=== PATIENT | female | born 1980 | race American Indian/Alaskan Native ===

== ENCOUNTER 2017-02-10 17:14 | Emergency (ER) | payer BC ==
[2017-02-10 17:24] VITALS: BP 130/90
[2017-02-10] MEDS ORDERED: TORADOL IM ONE (19:56)
--- NOTE | 2017-02-10 21:15 | Emergency Department Report ---
ED Neck Pain/Injury HPI - General Chief Complaint: Neck Pain/Injury Stated Complaint: NECK PAIN Time Seen by Provider: 02/10/17 19:56 Mode of arrival: Ambulatory Limitations: No Limitations - History of Present Illness Initial Comments: This is a 36-year-old female nontoxic, well nourished in appearance, no acute signs of distress presents to the ED with c/o of intermittent chronic right neck pain radiates to her right upper extremity. Patient denies any trauma. Denies any nausea, vomiting, photophobia, stiff neck, chest pain, shortness of breath, headache blurry vision, numbness, tingling, abdominal pain. Patient stated symptoms are resolved with taking [id number] Motrin. Patient stated that symptoms have been resolving but she woke up this morning and developed right-sided neck pain. Patient states allergies to iodine but denies Past medical history. MD Complaint: neck pain -: month(s) (1) Place: home Radiation: right upper extremity Severity: mild Severity scale (0 -10): 8 Quality: aching Consistency: constant Improves With: none Worsens With: none Associated Symptoms: none. denies: headache, fever, numbness, tingling, weakness, vertigo, difficulty walking, swollen glands, difficulty swallowing, nausea, vomiting Treatments Prior to Arrival: none - Related Data Previous Rx's Medication Instructions Recorded Last Taken Type Cyclobenzaprine [Flexeril] 10 mg PO TID PRN #15 tablet 01/21/17 Unknown Rx Naproxen [Naprosyn] 500 mg PO BID PRN #20 tablet 01/21/17 Unknown Rx Ibuprofen [Motrin] 600 mg PO Q8H PRN #30 tablet 02/10/17 Unknown Rx methOCARBAMOL [Robaxin TAB] 500 mg PO BID #10 tab 02/10/17 Unknown Rx Allergies Allergy/AdvReac Type Severity Reaction Status Date / Time iodine AdvReac Swelling Verified 01/21/17 12:17 ED Review of Systems ROS: Stated complaint: NECK PAIN Other details as noted in HPI Constitutional: denies: chills, fever Eyes: denies: eye pain, eye discharge, vision change ENT: denies: ear pain, throat pain Respiratory: denies: cough, shortness of breath, wheezing Cardiovascular: denies: chest pain, palpitations Endocrine: no symptoms reported Gastrointestinal: denies: abdominal pain, nausea, diarrhea Genitourinary: denies: urgency, dysuria, discharge Musculoskeletal: denies: back pain, joint swelling, arthralgia Skin: denies: rash, lesions Neurological: denies: headache, weakness, paresthesias Psychiatric: denies: anxiety, depression Hematological/Lymphatic: denies: easy bleeding, easy bruising ED Past Medical Hx - Past Medical History Previous Medical History?: No - Surgical History Past Surgical History?: Yes Additional Surgical History: c section x 3 - Social History Smoking Status: Never Smoker Substance Use Type: None - Medications Home Medications: Home Medications Medication Instructions Recorded Confirmed Last Taken Type Cyclobenzaprine [Flexeril] 10 mg PO TID PRN #15 tablet 01/21/17 Unknown Rx Naproxen [Naprosyn] 500 mg PO BID PRN #20 tablet 01/21/17 Unknown Rx Ibuprofen [Motrin] 600 mg PO Q8H PRN #30 tablet 02/10/17 Unknown Rx methOCARBAMOL [Robaxin TAB] 500 mg PO BID #10 tab 02/10/17 Unknown Rx ED Physical Exam - General Limitations: No Limitations General appearance: alert, in no apparent distress - Head Head exam: Present: atraumatic, normocephalic, normal inspection - Eye Eye exam: Present: normal appearance, PERRL, EOMI. Absent: scleral icterus, conjunctival injection, nystagmus, periorbital swelling, periorbital tenderness Pupils: Present: normal accommodation - ENT ENT exam: Present: normal exam, normal orophraynx, mucous membranes moist, TM's normal bilaterally, normal external ear exam - Neck Neck exam: Present: normal inspection, tenderness, full ROM, other (Negative nuchal rigidity, carotid bruit.). Absent: meningismus, lymphadenopathy, thyromegaly - Respiratory Respiratory exam: Present: normal lung sounds bilaterally. Absent: respiratory distress, wheezes, rales, rhonchi, stridor, chest wall tenderness, accessory muscle use, decreased breath sounds, prolonged expiratory - Cardiovascular Cardiovascular Exam: Present: regular rate, normal rhythm, normal heart sounds. Absent: bradycardia, tachycardia, irregular rhythm, systolic murmur, diastolic murmur, rubs, gallop - GI/Abdominal GI/Abdominal exam: Present: soft, normal bowel sounds. Absent: distended, tenderness, guarding, rebound, rigid, diminished bowel sounds - Rectal Rectal exam: Present: deferred - Extremities Exam Extremities exam: Present: normal inspection, full ROM, normal capillary refill. Absent: tenderness, pedal edema, joint swelling, calf tenderness - Back Exam Back exam: Present: normal inspection, full ROM, paraspinal tenderness (right lateral cervical region). Absent: tenderness, CVA tenderness (R), CVA tenderness (L), muscle spasm, vertebral tenderness, rash noted - Expanded Back Exam Expanded Back exam: Present: normal rectal tone (as per patient). Absent: saddle anesthesia Back exam: Negative Straight Leg Raising: Left, Right - Neurological Exam Neurological exam: Present: alert, oriented X3, CN II-XII intact, normal gait, reflexes normal - Expanded Neurological Exam Expanded Patient oriented to: Present: person, place, time Cranial nerves: EOM's Intact: Normal, Gag Reflex: Normal, Tongue Deviation: Normal, Nystagmus: Normal, Facial Sensation: Normal, Facial Palsy with Forehead Movement: Normal, Facial Palsy without Forehead Movement: Normal Cerebellar function: Finger to Nose: Normal, Heel to Frank: Normal, Romberg: Normal Upper motor neuron: Carlos Eduardo Neglect: Normal, Pronator Drift: Normal, Babinski Sign : Normal, Sensory Extinction: Normal Sensory exam: Upper Extremity Light Touch: Normal, Upper Extremity Pin Prick: Normal, Upper Extremity Temperature: Normal, UE 2 Point Discrimination: Normal, Lower Extremity Light Touch: Normal, Lower Extremity Pin Prick: Normal, Lower Extremity Temperature: Normal, LE 2 Point Discrimination: Normal Motor strength exam: RUE: 5, LUE: 5, RLE: 5, LLE: 5 DTR: bicep (R): 2+, bicep (L): 2+, tricep (R): 2+, tricep (L): 2+, knee (R): 2+ , knee (L): 2+, ankle (R): 2+, ankle (L): 2+ Best Eye Response ([place]): (4) open spontaneously Best Motor Response ([place]): (6) obeys commands Best Verbal Response ([place]): (5) oriented [place] Total: 15 - Psychiatric Psychiatric exam: Present: normal affect, normal mood - Skin Skin exam: Present: warm, dry, intact, normal color. Absent: rash - Other Other exam information: Negative bladder or bowel stability as per patient. Negative kernig sign and brudzinski's sign ED Course Vital Signs 02/10/17 17:21 Temperature 98.9 F Pulse Rate 98 H Respiratory 16 Rate Blood Pressure 130/90 O2 Sat by Pulse 100 Oximetry - Reevaluation(s) Reevaluation #1: 02/10/17 21:18 Patient is speaking in full sentences with no signs of distress noted. ED Medical Decision Making - Medical Decision Making This is a 36-year-old female that presents with cervical radiculopathy. Patient is stable was examined by me. Patient received Toradol in the ED which patient stated symptoms are improving and subsiding. Patient was instructed to follow-up with her primary care doctor in 24 hours or symptoms such as nuchal rigidity, fever, chills, headache or any worsening return to the emergency room as soon as possible. At time time of discharge, the patient does not seem toxic or ill in appearance. No acute signs of distress noted. Patient agrees to discharge treatment plan of care. No further questions noted by the patient. Critical care attestation.: If time is entered above; I have spent that time in minutes in the direct care of this critically ill patient, excluding procedure time. ED Disposition Clinical Impression: Cervical radiculopathy Disposition: DC-01 TO HOME OR SELFCARE Is pt being admited?: No Does the pt Need Aspirin: No Condition: Stable Instructions: Cervical Radiculopathy (ED), Methocarbamol (By mouth), Ibuprofen (By mouth) Additional Instructions: Follow-up with her primary care doctor in 24 hours or symptoms such as nuchal rigidity, fever, chills, headache or any worsening return to the emergency room as soon as possible. Prescriptions: Ibuprofen [Motrin] 600 mg PO Q8H PRN #30 tablet PRN Reason: Pain methOCARBAMOL [Robaxin TAB] 500 mg PO BID #10 tab Referrals: [facility] [Outside] - 3-5 Days [facility] [Outside] - 3-5 Days PRIMARY CAREMD [Primary Care Provider] - 24 Hours ADOLFO SANTIAGO MD [Staff Physician] - 24 Hours Forms: Work/School Release Form(ED)
== END 2017-02-10 21:35 | disposition home or self-care (01) ==
LOC: ED 17:14
DX: M54.12 Radiculopathy, cervical region (principal); Z88.8 Allergy status to other drugs, medicaments and biological substances
CPT/HCPCS: 96372; 99282; J1885

== ENCOUNTER 2018-04-28 07:14 | Emergency (ER) | payer BC ==
[2018-04-28 07:38] VITALS: BP 135/89
[2018-04-28] MEDS ORDERED: DELTASONE PO ONE (08:22)
[2018-04-28] MEDS ORDERED: PROVENTIL IH ONE (08:22)
--- NOTE | 2018-04-28 08:28 | Emergency Department Report ---
Minor Respiratory - HPI Chief Complaint: Upper Respiratory Infection Stated Complaint: FLU SYMPTOMS Time Seen by Provider: 04/28/18 08:15 Duration: 3 Days Pain Location: Facial, Throat, Nose, Ear, Chest Severity: mild Minor Respiratory: Yes Sore Throat, Yes Able to Tolerate Fluids, Yes Cough, No Rhinorrhea, No Ear Pain, No Sick Contacts, No Hemoptysis, No Chest Pain, No Shortness of Breath, No Fever Other History: Responses and 37-year-old patient who comes to the ER today complaining of body aches congestion and chills. Patient has no fever on admission to the ER. She denies any daily home medications. She reports the symptoms have been for 3 days. She has taken no meds at home to feel better. ED Review of Systems ROS: Stated complaint: FLU SYMPTOMS Other details as noted in HPI Comment: All other systems reviewed and negative Constitutional: see HPI Eyes: denies: eye pain ENT: as per HPI, throat pain Respiratory: see HPI, cough Cardiovascular: denies: palpitations Endocrine: denies: excessive sweating Gastrointestinal: denies: nausea Genitourinary: denies: urgency Musculoskeletal: denies: back pain Skin: denies: rash Neurological: denies: headache Psychiatric: denies: anxiety ED Past Medical Hx - Past Medical History Previous Medical History?: No - Surgical History Past Surgical History?: Yes Additional Surgical History: c section x 3 - Family History Family history: no significant - Social History Smoking Status: Never Smoker Substance Use Type: None - Medications Home Medications: Home Medications Medication Instructions Recorded Confirmed Last Taken Type Fluticasone [Flonase] 1 spray NS QDAY #1 bottle 04/28/18 Unknown Rx RX: Azithromycin [Zithromax Z-ALLIE] 250 mg PO DAILY #6 tablet 04/28/18 Unknown Rx RX: predniSONE [Deltasone] 20 mg PO DAILY #5 tablet 04/28/18 Unknown Rx methylPREDNISolone [Medrol] 4 mg PO DAILY #1 tab.ds.pk 04/28/18 Unknown Rx Minor Respiratory Exam - Exam General: Vital signs noted. No distress. Alert and acting appropriately. HEENT: Yes Moist Mucous Membranes, No Pharyngeal Erythema, No Pharyngeal Exudates, No Rhinorrhea, No Conjuctival Injection, No Frontal Tenderness, No Maxillary Tenderness Ear: Neither TM Bulge, Neither TM Erythema, Neither EAC Pain, Neither EAC Discharge Neck: No Adenopathy, No Supple Lungs: Yes Good Air Exchange, No Wheezes, No Ronchi, No Stridor, No Cough, No Labored Respirations, No Retractions, No Use of Accessory Muscles, No Other Abnormal Lung Sounds Heart: Yes Regular, No Murmur Abdomen: Yes Normal Bowel Sounds, No Tenderness, No Peritoneal Signs Skin: No Rash, No Edema Neurologic: Alert and oriented, no deficits. Musculoskeletal: Unremarkable. ED Course Vital Signs 04/28/18 07:36 Temperature 98.7 F Pulse Rate 94 H Respiratory 18 Rate Blood Pressure 135/89 O2 Sat by Pulse 99 Oximetry ED Medical Decision Making - Lab Data Result diagrams: 04/28/18 08:50 04/28/18 08:50 - Medical Decision Making Lab Results 04/28/18 04/28/18 04/28/18 Range/Units 08:49 08:50 08:50 WBC 5.2 (4.5-11.0) K/mm3 RBC 4.04 (3.65-5.03) M/mm3 Hgb 12.7 (10.1-14.3) gm/dl Hct 37.9 (30.3-42.9) % MCV 94 (79-97) fl MCH 31 (28-32) pg MCHC 33 (30-34) % RDW 13.5 (13.2-15.2) % Plt Count 225 (140-440) K/mm3 Sodium 138 (137-145) mmol/L Potassium 3.8 (3.6-5.0) mmol/L Chloride 104.0 (98-107) mmol/L Carbon Dioxide 24 (22-30) mmol/L Anion Gap 14 mmol/L BUN 10 (7-17) mg/dL Creatinine 0.7 (0.7-1.2) mg/dL Estimated GFR > 60 ml/min BUN/Creatinine Ratio 14 % Glucose 93 (65-100) mg/dL Calcium 8.9 (8.4-10.2) mg/dL Urine Color Yellow (Yellow) Urine Turbidity Clear (Clear) Urine pH 5.0 (5.0-7.0) Ur Specific [place] 1.019 (1.003-1.030) Urine Protein <15 mg/dl (Negative) mg/dL Urine Glucose (UA) Neg (Negative) mg/dL Urine Ketones Neg (Negative) mg/dL Urine Blood Neg (Negative) Urine Nitrite Neg (Negative) Ur Reducing Substances Not Reportable Urine Bilirubin Neg (Negative) Urine Ictotest Not Reportable Urine Urobilinogen < 2.0 (<2.0) mg/dL Ur Leukocyte Esterase Tr (Negative) Urine WBC (Auto) 2.0 (0.0-6.0) /HPF Urine RBC (Auto) 1.0 (0.0-6.0) /HPF U Epithel Cells (Auto) 2.0 (0-13.0) /HPF Urine Bacteria (Auto) 1+ (Negative) /HPF Urine Mucus Few /HPF Urine HCG, Qual Negative (Negative) Vital Signs 04/28/18 04/28/18 04/28/18 07:36 09:09 09:24 Temperature 98.7 F Pulse Rate 94 H Pulse Rate [ 79 82 Anterior Bilateral Throughout] Respiratory 18 Rate Respiratory 18 18 Rate [Anterior Bilateral Throughout] Blood Pressure 135/89 O2 Sat by Pulse 99 Oximetry Vital signs are stable. Patient has no fever. Oxygen saturations are 99%. She is nontoxic, taking by mouth and ambulatory. pt will be dc home with dc plan of care and follow up Critical care attestation.: If time is entered above; I have spent that time in minutes in the direct care of this critically ill patient, excluding procedure time. ED Disposition Clinical Impression: Upper respiratory infection Disposition: DC-01 TO HOME OR SELFCARE Is pt being admited?: No Does the pt Need Aspirin: No Condition: Stable Instructions: Upper Respiratory Infection (ED) Additional Instructions: hydrate well with water meds as ordered follow up with pcp in 24 h if not better all studies normal today diet and activity as tolerated Prescriptions: RX: Azithromycin [Zithromax Z-ALLIE] 250 mg PO DAILY #6 tablet Fluticasone [Flonase] 1 spray NS QDAY #1 bottle methylPREDNISolone [Medrol] 4 mg PO DAILY #1 tab.ds.pk RX: predniSONE [Deltasone] 20 mg PO DAILY #5 tablet Referrals: SISSY BEACH MD [Primary Care Provider] - 3-5 Days Forms: Work/School Release Form(ED) Time of Disposition: 10:25
[2018-04-28 09:09] LABS: Hematocrit 37.9 % (30.3-42.9); Hemoglobin 12.7 gm/dl (10.1-14.3); Mean Corpuscular HGB Conc 33 % (30-34); Mean Corpuscular Volume 94 fl (79-97); Platelet Count 225 K/mm3 (140-440); Red Blood Count 4.04 M/mm3 (3.65-5.03); Red Cell Distribution Width 13.5 % (13.2-15.2)
[2018-04-28 09:21] LABS: BUN/Creatinine Ratio 14; Blood Urea Nitrogen 10 mg/dL (7-17); Calcium 8.9 mg/dL (8.4-10.2); Hemolysis Index 9
[2018-04-28 09:23] LABS: HCG Qualitative,Urine Negative (Negative)
[2018-04-28 09:27] LABS: Bacteria,Urine 1+ /HPF (Negative); Bilirubin,Urine NEG (Negative); Blood,Urine NEG (Negative); Color,Urine Yellow (Yellow); Mucus,Urine FEW /HPF; Protein,Urine <15 mg/dL mg/dL (Negative); Urobilinogen,Urine < 2.0 mg/dL (<2.0)
--- NOTE | 2018-04-28 10:53 | XRay Report ---
ROUTINE CHEST, TWO VIEWS: Cough. PA and lateral views demonstrate the heart and mediastinal contour to be of normal size and shape. The lungs are clear and fully expanded and the soft tissues and bony structures are normal. IMPRESSION: Normal study.
== END 2018-04-28 10:31 | disposition home or self-care (01) ==
LOC: ED 07:14
DX: J06.9 Acute upper respiratory infection, unspecified (principal); Z88.8 Allergy status to other drugs, medicaments and biological substances; Z91.040 Latex allergy status
CPT/HCPCS: 36415; 71046; 80048; 81001; 81025; 85027; 94640; 99284; J7512

== ENCOUNTER 2018-12-02 11:29 | Outpatient (CLI) | payer BC ==
[2018-12-02 12:28] LABS: Hematocrit 40.4 % (30.3-42.9); Hemoglobin 13.3 gm/dl (10.1-14.3); Mean Corpuscular HGB Conc 33 % (30-34); Mean Corpuscular Volume 94 fl (79-97); Platelet Count 265 K/mm3 (140-440); Red Cell Distribution Width 13.9 % (13.2-15.2)
[2018-12-02 13:02] LABS: Alanine Aminotransferase 16 units/L (7-56); Albumin 4.5 g/dL (3.9-5); BUN/Creatinine Ratio 12; Blood Urea Nitrogen 6 mg/dL (7-17); Calcium 9.3 mg/dL (8.4-10.2); Chol/HDL Ratio 2.37 %; HDL Cholesterol 77 mg/dL (40-59); Hemolysis Index 1; LDL Cholesterol,Direct 118 mg/dL (50-130)
== END 2018-12-02 11:30 | disposition home or self-care (01) ==
LOC: LAB 11:29
PROVIDERS: ATTEND Internal Medicine
DX: Z13.220 Encounter for screening for lipoid disorders (principal); Z13.1 Encounter for screening for diabetes mellitus; Z13.21 Encounter for screening for nutritional disorder
CPT/HCPCS: 36415; 80053; 80061; 82306; 82607; 83036; 84443; 85027

== ENCOUNTER 2019-01-30 07:10 | Emergency (ER) | payer BC ==
[2019-01-30 07:42] VITALS: BP 140/86
--- NOTE | 2019-01-30 08:48 | Emergency Department Report ---
ED General Adult HPI - General Chief complaint: Upper Respiratory Infection Stated complaint: FLU SYMPTOMS Time Seen by Provider: 01/30/19 07:46 Source: patient Mode of arrival: Ambulatory Limitations: No Limitations - History of Present Illness Initial comments: 38-year-old -[place] female patient complains of sore throat 2 days. She denies any fever/chills, cough, rash, sick contacts, or trouble swallowing. She rates the pain at a 7 out of 10 in severity. She denies history of recurrent strep. -: Sudden Radiation: non-radiation Associated Symptoms: headaches. denies: confusion, cough, loss of appetite, malaise, rash, weakness - Related Data Previous Rx's Medication Instructions Recorded Last Taken Type Azithromycin [Zithromax Z-ALLIE] 250 mg PO DAILY #6 tablet 04/28/18 Unknown Rx Fluticasone [Flonase] 1 spray NS QDAY #1 bottle 04/28/18 Unknown Rx methylPREDNISolone [Medrol] 4 mg PO DAILY #1 tab.ds.pk 04/28/18 Unknown Rx predniSONE [Deltasone] 20 mg PO DAILY #5 tablet 04/28/18 Unknown Rx Ibuprofen [Motrin 800 MG tab] 800 mg PO Q8HR PRN #21 tablet 01/30/19 Unknown Rx predniSONE [Deltasone] 20 mg PO QDAY 3 Days #3 tab 01/30/19 Unknown Rx Allergies Allergy/AdvReac Type Severity Reaction Status Date / Time Latex, Natural Rubber Allergy Rash Verified 04/28/18 07:38 iodine AdvReac Swelling Verified 01/21/17 12:17 ED Review of Systems ROS: Stated complaint: FLU SYMPTOMS Other details as noted in HPI Comment: All other systems reviewed and negative ENT: as per HPI Respiratory: see HPI ED Past Medical Hx - Past Medical History Previous Medical History?: No - Surgical History Past Surgical History?: Yes Additional Surgical History: c section x 3 - Social History Smoking Status: Never Smoker Substance Use Type: None - Medications Home Medications: Home Medications Medication Instructions Recorded Confirmed Last Taken Type Azithromycin [Zithromax Z-ALLIE] 250 mg PO DAILY #6 tablet 04/28/18 Unknown Rx Fluticasone [Flonase] 1 spray NS QDAY #1 bottle 04/28/18 Unknown Rx methylPREDNISolone [Medrol] 4 mg PO DAILY #1 tab.ds.pk 04/28/18 Unknown Rx predniSONE [Deltasone] 20 mg PO DAILY #5 tablet 04/28/18 Unknown Rx Ibuprofen [Motrin 800 MG tab] 800 mg PO Q8HR PRN #21 tablet 01/30/19 Unknown Rx predniSONE [Deltasone] 20 mg PO QDAY 3 Days #3 tab 01/30/19 Unknown Rx ED Physical Exam - General Limitations: No Limitations General appearance: alert, in no apparent distress - Head Head exam: Present: atraumatic, normocephalic - Eye Eye exam: Present: normal appearance. Absent: scleral icterus - ENT ENT exam: Present: mucous membranes moist - Neck Neck exam: Present: full ROM, lymphadenopathy. Absent: meningismus - Respiratory Respiratory exam: Present: normal lung sounds bilaterally. Absent: respiratory distress - Cardiovascular Cardiovascular Exam: Present: regular rate, normal rhythm - Neurological Exam Neurological exam: Present: alert, oriented X3 - Psychiatric Psychiatric exam: Present: normal affect, normal mood - Skin Skin exam: Present: warm, dry, intact, normal color. Absent: rash ED Course Vital Signs 01/30/19 01/30/19 07:39 09:05 Temperature 98.4 F Pulse Rate 90 Respiratory 18 16 Rate Blood Pressure 140/86 O2 Sat by Pulse 98 Oximetry ED Medical Decision Making - Lab Data Lab Results 01/30/19 Range/Units Unknown Group A Strep Rapid Negative (Negative) - Medical Decision Making Patient here for sore throat for the past 2 days. Patient is afebrile. Throat exam is negative for acute findings. Strep is negative. Centor's criteria score= 2. Symptoms are likely due to viral pharyngitis. Recommend follow-up with primary care. We'll treat symptomatically for now. Strict return precautions were discussed in detail with patient who states understanding. Critical care attestation.: If time is entered above; I have spent that time in minutes in the direct care of this critically ill patient, excluding procedure time. ED Disposition Clinical Impression: Viral pharyngitis Disposition: DC- TO HOME OR SELFCARE Is pt being admited?: No Condition: Stable Instructions: Pharyngitis (ED) Prescriptions: predniSONE [Deltasone] 20 mg PO QDAY 3 Days #3 tab Ibuprofen [Motrin 800 MG tab] 800 mg PO Q8HR PRN #21 tablet PRN Reason: Pain , Severe (7-10) Referrals: PRIMARY CARE, [Primary Care Provider] - 3-5 Days Forms: Work/School Release Form(ED)
[2019-01-30] MEDS ORDERED: IBUPROFEN 800 MG TAB PO ONE (08:52)
== END 2019-01-30 09:33 | disposition home or self-care (01) ==
LOC: ED 07:10
DX: J02.9 Acute pharyngitis, unspecified (principal); Z91.040 Latex allergy status; Z91.041 Radiographic dye allergy status
CPT/HCPCS: 87116; 87430

== ENCOUNTER 2019-02-03 07:05 | Emergency (ER) | payer SELFPAY ==
[2019-02-03] MEDS ORDERED: methylPREDNISolone Sod Succinate 125 MG/2 ML INJ IV ONE (07:55)
[2019-02-03] MEDS ORDERED: IPRATROPIUM/ALBUTEROL SULFATE 3 ML AMPUL.NEB IH ONE (07:55)
[2019-02-03] MEDS ORDERED: SODIUM CHLORIDE 0.9% 1000 ML 1,000 ML IV ONE (07:56)
--- NOTE | 2019-02-03 08:44 | XRay Report ---
CHEST 1 VIEW INDICATION: cough/sob. COMPARISON: 04/28/2018 FINDINGS: Support devices: None. Heart: Within normal limits. Pulmonary vasculature: Normal. Lungs/Pleura: No acute air space or interstitial disease. Additional findings: None. IMPRESSION: Normal chest. Signer Name: Joon Corrigan MD Signed: 02/03/2019 8:40 AM Workstation Name: [id number]
--- NOTE | 2019-02-03 08:56 | Emergency Department Report ---
ED General Adult HPI - General Chief complaint: Upper Respiratory Infection Stated complaint: CHEST PAIN BACK PAIN WEAKNESS COUGH Time Seen by Provider: 02/03/19 07:33 Source: patient Mode of arrival: Ambulatory Limitations: No Limitations - History of Present Illness Initial comments: Patient presents to the emergency department with a chief complaint of severe cough with congestion for the last week. Patient's sensation was seen in the emergency department previously for the symptoms and does not feel better. -: Gradual Severity scale (0 -10): 0 Consistency: constant Improves with: none Worsens with: none Associated Symptoms: denies other symptoms Treatments Prior to Arrival: none - Related Data Previous Rx's Medication Instructions Recorded Last Taken Type Azithromycin [Zithromax Z-ALLIE] 250 mg PO DAILY #6 tablet 04/28/18 Unknown Rx Fluticasone [Flonase] 1 spray NS QDAY #1 bottle 04/28/18 Unknown Rx methylPREDNISolone [Medrol] 4 mg PO DAILY #1 tab.ds.pk 04/28/18 Unknown Rx predniSONE [Deltasone] 20 mg PO DAILY #5 tablet 04/28/18 Unknown Rx Ibuprofen [Motrin 800 MG tab] 800 mg PO Q8HR PRN #21 tablet 01/30/19 Unknown Rx predniSONE [Deltasone] 20 mg PO QDAY 3 Days #3 tab 01/30/19 Unknown Rx ALBUTEROL Inhaler (OR & NICU) 2 puff IH Q4HR PRN #1 inhalation 02/03/19 Unknown Rx [ProAir HFA Inhaler] Azithromycin [Zithromax Z-ALLIE] 250 mg PO DAILY #6 tablet 02/03/19 Unknown Rx Ketorolac [Toradol] 10 mg PO Q6H PRN #12 tablet 02/03/19 Unknown Rx Ondansetron [Zofran Odt] 4 mg PO Q4HR PRN #20 tab.rapdis 02/03/19 Unknown Rx guaiFENesin/CODEINE [Robitussin AC] 5 ml PO Q12HR PRN #180 oral.liqd 02/03/19 Unknown Rx predniSONE [Deltasone] 20 mg PO DAILY #15 tablet 02/03/19 Unknown Rx Allergies Allergy/AdvReac Type Severity Reaction Status Date / Time Latex, Natural Rubber Allergy Rash Verified 04/28/18 07:38 iodine AdvReac Swelling Verified 01/21/17 12:17 ED Review of Systems ROS: Stated complaint: CHEST PAIN BACK PAIN WEAKNESS COUGH Other details as noted in HPI Constitutional: denies: chills, fever Eyes: denies: eye pain, eye discharge, vision change ENT: denies: ear pain, throat pain Respiratory: cough, shortness of breath. denies: wheezing Cardiovascular: denies: chest pain, palpitations Endocrine: no symptoms reported Gastrointestinal: denies: abdominal pain, nausea, diarrhea Genitourinary: denies: urgency, dysuria, discharge Musculoskeletal: denies: back pain, joint swelling, arthralgia Skin: denies: rash, lesions Neurological: denies: headache, weakness, paresthesias Psychiatric: denies: anxiety, depression Hematological/Lymphatic: denies: easy bleeding, easy bruising ED Past Medical Hx - Past Medical History Previous Medical History?: Yes Hx Asthma: Yes - Surgical History Past Surgical History?: Yes Additional Surgical History: c section x 3. tubal ligation - Social History Smoking Status: Never Smoker Substance Use Type: None - Medications Home Medications: Home Medications Medication Instructions Recorded Confirmed Last Taken Type Azithromycin [Zithromax Z-ALLIE] 250 mg PO DAILY #6 tablet 04/28/18 Unknown Rx Fluticasone [Flonase] 1 spray NS QDAY #1 bottle 04/28/18 Unknown Rx methylPREDNISolone [Medrol] 4 mg PO DAILY #1 tab.ds.pk 04/28/18 Unknown Rx predniSONE [Deltasone] 20 mg PO DAILY #5 tablet 04/28/18 Unknown Rx Ibuprofen [Motrin 800 MG tab] 800 mg PO Q8HR PRN #21 tablet 01/30/19 Unknown Rx predniSONE [Deltasone] 20 mg PO QDAY 3 Days #3 tab 01/30/19 Unknown Rx ALBUTEROL Inhaler (OR & NICU) 2 puff IH Q4HR PRN #1 inhalation 02/03/19 Unknown Rx [ProAir HFA Inhaler] Azithromycin [Zithromax Z-ALLIE] 250 mg PO DAILY #6 tablet 02/03/19 Unknown Rx Ketorolac [Toradol] 10 mg PO Q6H PRN #12 tablet 02/03/19 Unknown Rx Ondansetron [Zofran Odt] 4 mg PO Q4HR PRN #20 tab.rapdis 02/03/19 Unknown Rx guaiFENesin/CODEINE [Robitussin AC] 5 ml PO Q12HR PRN #180 oral.liqd 02/03/19 Unknown Rx predniSONE [Deltasone] 20 mg PO DAILY #15 tablet 02/03/19 Unknown Rx ED Physical Exam - General Limitations: No Limitations General appearance: alert, in no apparent distress - Head Head exam: Present: atraumatic, normocephalic - Eye Eye exam: Present: normal appearance, PERRL - ENT ENT exam: Present: mucous membranes moist - Neck Neck exam: Present: normal inspection - Respiratory Respiratory exam: Present: normal lung sounds bilaterally, wheezes (mild whe ezing on exam). Absent: respiratory distress - Cardiovascular Cardiovascular Exam: Present: regular rate, normal rhythm. Absent: systolic murmur, diastolic murmur, rubs, gallop - GI/Abdominal GI/Abdominal exam: Present: soft, normal bowel sounds. Absent: distended, tenderness - Extremities Exam Extremities exam: Present: normal inspection - Back Exam Back exam: Present: normal inspection - Neurological Exam Neurological exam: Present: alert, oriented X3, CN II-XII intact. Absent: motor sensory deficit - Psychiatric Psychiatric exam: Present: normal affect, normal mood - Skin Skin exam: Present: warm, dry, intact, normal color. Absent: rash ED Course Vital Signs 02/03/19 07:12 Temperature 98.6 F Pulse Rate 92 H Respiratory 16 Rate Blood Pressure 142/88 O2 Sat by Pulse 99 Oximetry ED Medical Decision Making - Radiology Data Radiology results: report reviewed - Medical Decision Making The length disposition was secondary to the patient not receiving IV medications and fluids as ordered. Upon reexamination of the patient at 8:30 AM patient has not had IV started or medications given. Diagnostic results discussed with patient and plan of care Critical care attestation.: If time is entered above; I have spent that time in minutes in the direct care of this critically ill patient, excluding procedure time. ED Disposition Clinical Impression: Bronchitis Disposition: DC-01 TO HOME OR SELFCARE Is pt being admited?: No Does the pt Need Aspirin: No Condition: Stable Instructions: Acute Bronchitis (ED) Additional Instructions: return if worse Referrals: NAVJOT SANABRIA MD [Primary Care Provider] - 3-5 Days [facility], [Provider Group] - 3-5 Days [facility] [Provider Group] - 3-5 Days Time of Disposition: 10:17
[2019-02-03] MEDS ORDERED: ONDANSETRON 4 MG/2 ML INJ ONE (09:26)
[2019-02-03] MEDS ORDERED: ONDANSETRON 4 MG/2 ML INJ IV ONE (09:28)
[2019-02-03 10:59] VITALS: BP 124/76
== END 2019-02-03 10:58 | disposition home or self-care (01) ==
LOC: ED 07:05
DX: J40 Bronchitis, not specified as acute or chronic (principal); Z87.09 Personal history of other diseases of the respiratory system; Z98.51 Tubal ligation status; Z98.890 Other specified postprocedural states; Z79.1 Long term (current) use of non-steroidal anti-inflammatories (NSAID); Z79.899 Other long term (current) drug therapy; Z91.040 Latex allergy status; Z88.8 Allergy status to other drugs, medicaments and biological substances
CPT/HCPCS: 71045; 94640; 96374; 96375; 99283; J2405; J2930; J7030

== ENCOUNTER 2020-12-14 16:01 | Outpatient (CLI) | payer OTHER ==
[2020-12-14 16:50] LABS: Alanine Aminotransferase 29 units/L (7-56); Blood Urea Nitrogen 9 mg/dL (7-17); Chol/HDL Ratio 2.42 %; HDL Cholesterol 73 mg/dL (40-59); Hemolysis Index 7; LDL Cholesterol,Direct 101 mg/dL (50-130)
[2020-12-14 16:57] LABS: BUN/Creatinine Ratio 15
[2020-12-14 17:14] LABS: Basophils % (Auto) 0.7 % (0.0-1.8); Eosinophils # (Auto) 0.1 K/mm3 (0.0-0.4); Eosinophils % (Auto) 2.8 % (0.0-4.3); Hematocrit 38.1 % (30.3-42.9); Hemoglobin 12.4 gm/dl (10.1-14.3); Lymphocytes # (Auto) 2.5 K/mm3 (1.2-5.4); Lymphocytes % (Auto) 46.7 % (13.4-35.0); Mean Corpuscular HGB Conc 33 % (30-34); Mean Corpuscular Volume 94 fl (79-97); Monocytes # (Auto) 0.3 K/mm3 (0.0-0.8); Monocytes % (Auto) 6.4 % (0.0-7.3); Platelet Count 284 K/mm3 (140-440); Red Blood Count 4.05 M/mm3 (3.65-5.03); Red Cell Distribution Width 13.7 % (13.2-15.2)
[2020-12-18 13:02] LABS: Vitamin D, 25-OH, D2 <4 ng/mL
== END 2020-12-14 16:02 | disposition home or self-care (01) ==
LOC: LAB 16:01
PROVIDERS: ATTEND Internal Medicine
DX: Z13.1 Encounter for screening for diabetes mellitus (principal); Z13.220 Encounter for screening for lipoid disorders; Z13.29 Encounter for screening for other suspected endocrine disorder; Z00.00 Encounter for general adult medical examination without abnormal findings; E55.9 Vitamin D deficiency, unspecified
CPT/HCPCS: 36415; 80053; 80061; 82306; 83036; 84443; 85025

== ENCOUNTER 2020-12-15 06:34 | Outpatient (CLI) | payer OTHER ==
--- NOTE | 2020-12-15 09:08 | XRay Report ---
LEFT HAND 3 VIEWS INDICATION / CLINICAL INFORMATION: PAIN IN LEFT HAND COMPARISON: None available. FINDINGS: BONES / JOINT(S): No acute fracture or subluxation. No significant arthritis. SOFT TISSUES: No significant abnormality. ADDITIONAL FINDINGS: None. Signer Name: Juarez New MD Signed: 12/15/2020 9:04 AM Workstation Name: [id number]
--- NOTE | 2020-12-15 09:09 | XRay Report ---
LEFT WRIST 3 VIEW(S) INDICATION / CLINICAL INFORMATION: PAIN IN LEFT WRIST COMPARISON: None available. FINDINGS: BONES / JOINT(S): No acute fracture or subluxation. No significant arthritis. SOFT TISSUES: No significant abnormality. ADDITIONAL FINDINGS: None. Signer Name: Juarez New MD Signed: 12/15/2020 9:05 AM Workstation Name: [id number]
== END 2020-12-15 06:35 | disposition home or self-care (01) ==
LOC: XRAY 06:34
PROVIDERS: ATTEND Internal Medicine
DX: M25.532 Pain in left wrist (principal)